=== PATIENT | female | born 1990 | race Caucasian/White ===

== ENCOUNTER 2016-03-30 07:55 | Emergency (ER) | payer MEDICAID ==
[~2016-03-30] VITALS: Ht 167.6 cm; Wt 76.0 kg
[~2016-03-30 07:55] MED LIST: PRENAT PO
[2016-03-30 07:56] VITALS: Ht 167.6 cm; Wt 76.0 kg
[2016-03-30] MEDS ORDERED: SODI126M NASAL (08:13)
[2016-03-30] MEDS ORDERED: IBUP-1542 PO (08:13)
--- NOTE | 2016-03-30 08:29 | ERD ---
ER Documentation Chief Complaint Date/Time DATE: 03/30/16 TIME: 08:24 Chief Complaint FEVER X 5 DAYS HPI 25-year-old female complaining of fever, sore throat, and headache 5 days. T- max was 105.1 yesterday. She also complaining of bilateral ear pain and nasal congestion. Unable to swallow because the pain. Denies cough or shortness breath. ROS All systems reviewed and are negative except as per history of present illness. Medications Home Meds Active Scripts Ibuprofen* (Motrin*) 600 Mg Tab, 600 MG PO Q6H Y for PAIN AND OR ELEVATED TEMP, #30 TAB Prov:RUSSELL RIOS. 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 OIL WELL 03/30/16 Reported Medications Multivit/Min/Fol Ac/Iron/Pren* ( S*) 1 Tab Tab, 1 TAB PO DAILY, TAB 10/01/13 Allergies Allergies: Coded Allergies: No Known Allergy (Unverified , 07/10/11) PMhx/Soc Medical and Surgical Hx: pt denies Medical Hx, pt denies Surgical Hx History of Surgery: No Anesthesia Reaction: No Hx Neurological Disorder: No Hx Respiratory Disorders: No Hx Cardiac Disorders: No Hx Psychiatric Problems: No Hx Miscellaneous Medical Probl: No Hx Alcohol Use: No Hx Substance Use: No Hx Tobacco Use: No Smoking Status: Never smoker Physical Exam Vitals Vital Signs Date Time Temp Pulse Resp B/P Pulse Ox O2 Delivery O2 Flow Rate FiO2 03/30/16 07:56 100.8 124 25 133/77 99 Physical Exam General impression: Well-developed, well-nourished, 25-year-old, alert, oriented, in no acute distress Head: Normocephalic, atraumatic. Eyes: PERRL, EOM normal. Conjunctiva not injected. ENT: External canals clear. TM's pearly gallardo. Oropharynx erythematous with purulent exudate. Neck: Supple, nontender. No lymphanopathy. No nuchal rigidity. Respiration: Normal respiratory effort. Lungs clear to auscultate bilaterally. No wheezes, rales or rhonchi. Cardiovascular: Regular rate and rhythm. No murmurs or extra heart sounds. Neuro: Mental status normal, speech normal. Skin: Normal turgor. No rash or lesions. Psych: Normal mood and affect. Results 24 hrs Current Medications Medications (Trade) Dose Ordered Sig/Tangela Route PRN Reason Start Time Stop Time Status Last Admin Dose Admin Penicillin G Benzathine (Bicillin La) 1,200,000 units ONCE ONCE IM 03/30/16 08:30 03/30/16 08:31 Procedures/MDM Well-appearing 25-year-old female presented to ED with fever and sore throat 5 days. Patient symptoms and exam findings are consistent with strep pharyngitis. Patient was treated in the ED with penicillin BG IM 1.2 million units. Patient appears well, stable for discharge and outpatient management. Medical decision making shared with patient and family. Education provided to patient and family. Patient and family expressed understanding of the plan. Medications on discharge: Saline nasal spray, ibuprofen. Follow-up: Primary care provider in 2-3 days or return to ED if worse. Departure Diagnosis: Primary Impression: Strep pharyngitis Condition: Stable Patient Instructions: Pharyngitis, Strep (Presumed) Referrals: [facility] YOU HAVE RECEIVED A MEDICAL SCREENING EXAM AND THE RESULTS INDICATE THAT YOU DO NOT HAVE A CONDITION THAT REQUIRES URGENT TREATMENT IN THE EMERGENCY DEPARTMENT. FURTHER EVALUATION AND TREATMENT OF YOUR CONDITION CAN WAIT UNTIL YOU ARE SEEN IN YOUR DOCTORS OFFICE WITHIN THE NEXT 1-2 DAYS. IT IS YOUR RESPONSIBILITY TO MAKE AN APPOINTMENT FOR FOLOW-UP CARE. IF YOU HAVE A PRIMARY DOCTOR --you should call your primary doctor and schedule an appointment IF YOU DO NOT HAVE A PRIMARY DOCTOR YOU CAN CALL OUR PHYSICIAN REFERRAL HOTLINE AT IF YOU CAN NOT AFFORD TO SEE A PHYSICIAN YOU CAN CHOSE FROM THE FOLLOWING [facility] [address] [facility] [address] [facility] [address] [facility] [address] [facility] [address] [facility]. [address] Additional Instructions: Call your primary care doctor TOMORROW for an appointment during the next 2-3 days.See the doctor sooner or return here if your condition worsens before your appointment time. RUSSELL RIOS NP Mar 30, 2016 08:29
[2016-03-30] MEDS ORDERED: PENICILLIN G BENZ 1.2 MIL UNIT SYG IM ONE (08:30)
== END 2016-03-30 09:24 | disposition home or self-care (01) ==
LOC: FTE 07:55
DX: J02.0 Streptococcal pharyngitis (principal)
CPT/HCPCS: 96372; J0561; Z7502

== ENCOUNTER 2016-12-17 08:18 | Outpatient (CLI) | payer OTHER ==
[~2016-12-17] VITALS: Ht 167.6 cm; Wt 84.0 kg
[~2016-12-17 08:18] MED LIST changes: +IBUP-1542 PO; +SODI126M NASAL
[2016-12-17 08:28] VITALS: Ht 167.6 cm; Wt 84.0 kg
[2016-12-17 08:29] VITALS: BP 117/73; PULSE 77; RESP 18
--- NOTE | 2016-12-17 09:46 | RADRPT ---
PROCEDURE: OB ultrasound for biophysical profile CLINICAL INDICATION: Contractions. TECHNIQUE: Multiple sonographic images of the pelvis were obtained. Transabdominal view of the gr avid uterus are available for review. The images were reviewed on a PACS workstation. COMPARISON: None FINDINGS: breathing movement = 2/2 tone = 2/2 motion = 2/2 Quantitative amniotic fluid volume = 2/2 RAVI = 16.1 cm Single live intrauterine with cardiac activity at 144 beats per minute. There is a anterior placenta without previa or abruption. The cervix is closed. The cervical length is 2.3 cm. IMPRESSION: 1. Single living intrauterine gestation in cephalic position. 2. Biophysical profile = 8/8. 3. RAVI = 16.1 cm. RPTAT: AACC Physician Cherri Date Time Electronically viewed and signed by Physician Cherri on 12/17/2016 09:46 /
[2016-12-17 10:24] LABS: ADD UMIC YES; UR ASCORBIC ACID NEGATIVE (NEGATIVE); UR BACTERIA FEW /HPF (NONE SEEN); UR BILIRUBIN (Dip) NEGATIVE (NEGATIVE); UR BLOOD (Dip) NEGATIVE (NEGATIVE); UR CLARITY CLEAR (CLEAR); UR COLOR YELLOW (YELLOW); UR GLUCOSE (Dip) NEGATIVE (NEGATIVE); UR KETONES (Dip) NEGATIVE (NEGATIVE); UR LEUKOCYTE ESTERASE (Dip) TRACE Leu/ul (NEGATIVE); UR NITRITE (Dip) NEGATIVE (NEGATIVE); UR RBC 2 /HPF (0-5); UR SQUAMOUS EPITHELIAL CELL FEW /HPF (FEW); UR TOTAL PROTEIN (Dip) NEGATIVE (NEGATIVE); UR UROBILINOGEN (Dip) 1+ mg/dL (NEGATIVE)
[2016-12-17] MEDS ORDERED: TERBUTALINE 1 ML ONE (10:25)
[2016-12-17] MEDS: LACTATED RINGER'S 1,000 ML IV SCH ×2 (10:52→12:25)
[2016-12-17] MEDS ORDERED: TERBUTALINE 1 MG/ML INJ SC PRN (11:00)
[2016-12-17 12:05] LABS: BASOPHILS % 0.1 % (0.0-2.0); EOSINOPHILS % 0.1 % (0.0-7.0); HEMATOCRIT 33.4 % (37.0-47.0); LYMPHOCYTES # 2.1 10^3/ul (0.8-2.9); LYMPHOCYTES % 28.5 % (15.0-51.0); MEAN CORPUSCULAR HEMOGLOBIN 29.6 pg (29.0-33.0); MEAN CORPUSCULAR HGB CONC 32.9 g/dl (32.0-37.0); MEAN PLATELET VOLUME 11.3 fl (7.4-10.4); MONOCYTE # 0.4 10^3/ul (0.3-0.9); MONOCYTES % 5.1 % (0.0-11.0); NEUTROPHIL # 4.8 10^3/ul (1.6-7.5); NEUTROPHILS % 65.5 % (39.0-77.0); PLATELET COUNT 221 10^3/UL (140-415); RED BLOOD COUNT 3.71 10^6/ul (4.20-5.40); RED CELL DISTRIBUTION WIDTH 13.6 % (11.5-14.5); WHITE BLOOD COUNT 7.3 10^3/ul (4.8-10.8)
--- NOTE | 2016-12-17 13:37 | PN ---
Triage Information Date/Time Reason for visit: Uterine contractions Weeks of Gestation 28w 6d /Para Objective Vital Signs Date Time Temp Pulse Resp B/P Pulse Ox O2 Delivery O2 Flow Rate FiO2 12/17/16 08:29 98.1 77 18 117/73 Room Air Heart Rate Comments reactive Exam Tocometer --> no UCs after IVFs, terbutaline Results/Medications Result Diagram: 12/17/16 1115 Results 24 hrs Laboratory Tests Test 12/17/16 09:45 12/17/16 11:15 Urine Color YELLOW Urine Clarity CLEAR Urine pH 7.0 Urine Specific Rhine 1.020 Urine Ketones NEGATIVE Urine Nitrite NEGATIVE Urine Bilirubin NEGATIVE Urine Urobilinogen 1+ H Urine Leukocyte Esterase TRACE A Urine Microscopic RBC 2 Urine Microscopic WBC 20 H Urine Squamous Epithelial Cells FEW Urine Bacteria FEW A Urine Hemoglobin NEGATIVE Urine Glucose NEGATIVE Urine Total Protein NEGATIVE White Blood Count 7.3 Red Blood Count 3.71 L Hemoglobin 11.0 L Hematocrit 33.4 L Mean Corpuscular Volume 90.0 Mean Corpuscular Hemoglobin 29.6 Mean Corpuscular Hemoglobin Concent 32.9 Red Cell Distribution Width 13.6 Platelet Count 221 Mean Platelet Volume 11.3 H Neutrophils % 65.5 Lymphocytes % 28.5 Monocytes % 5.1 Eosinophils % 0.1 Basophils % 0.1 Nucleated Red Blood Cells % 0.0 Neutrophils # 4.8 Lymphocytes # 2.1 Monocytes # 0.4 Eosinophils # 0.0 Basophils # 0.0 Nucleated Red Blood Cells # 0.0 Medications Current Medications Lactated Ringer's (Lr) 1,000 ml @ 125 mls/hr Q8H IV Last administered on 12:25; Admin Dose 125 MLS/HR; Start 12/17/16 at 10:08 Terbutaline Sulfate (Brethine) 0.25 mg Q30MIN PRN SC contractions Last administered on 12/17/16 10:52; Admin Dose 0.25 MG; Start 12/17/16 at 11:00 Imaging Results CL 2.3cm Disposition: Discharge Assessment/Plan 26 y/o at 28w 6d with contractions, no e/o ptl -discharge home -ptl precautions given -f/u with OB MIO RIDLEY Dec 17, 2016 13:37
--- NOTE | 2016-12-17 15:08 | TRIAGE ---
OB Triage Datetime Report Generated by CPN: 12/17/2016 15:07 Datetime: 12/17/2016 13:15 Stage of : OB Triage Datetime: 12/17/2016 13:13 Labor Evaluation Frequency: 0 Monitor Mode: External Duration (sec)2399: 0 Resting Tone [place]: Relaxed Heart Rate FHR Baseline Rate: 125 Monitor Mode: External US Variability: Moderate 6-25 bpm Accelerations: 15X15 Decelerations: None Category: Category I Datetime: 12/17/2016 12:05 Labor Evaluation Frequency: IRREG Monitor Mode: External Duration (sec)2399: 50-90 Quality: Mild Pattern: Normal: <= 5 Contractions in 10 Minutes Resting Tone [place]: Relaxed Heart Rate FHR Baseline Rate: 135 Monitor Mode: External US Variability: Moderate 6-25 bpm Accelerations: 15X15 Decelerations: None Category: Category I Pain Assessment Pain Scale: 0 Pain Presence: None/Denies Pain Type: N/A Pain Goal: 2 Pain Assessment Comments: PAIN REPORTS NO PAIN AND FEELING MIUCH BETTER Datetime: 12/17/2016 10:54 Labor Evaluation Frequency: 3-5 Monitor Mode: External Duration (sec)2399: 40-80 Quality: Moderate Pattern: Normal: <= 5 Contractions in 10 Minutes Resting Tone [place]: Relaxed Heart Rate FHR Baseline Rate: 145 Monitor Mode: External US Variability: Moderate 6-25 bpm Accelerations: 15X15 Decelerations: None Category: Category I Datetime: 12/17/2016 10:00 Stage of : OB Triage Assessment Type: Triage Maternal Assessment Level of Consciousness: Fully Conscious DTR's/Clonus: DTRs 2+; No Clonus Headache: Denies Blurred Vision: No Respiratory Effort: Unlabored; Regular Rhythm; Equal Expansion Breath Sounds, Left: Clear and Equal Breath Sounds, Right: Clear and Equal Nausea/Vomiting: Denies RUQ Epigastric Pain: Denies Lower Extremities Edema: None Degree: None Upper Extremities Edema: None Degree: None Facial Edema: None Temperature Route: Axillary Fall Risk Assessment History of Falling: (0) No Secondary Diagnosis: (0) No Ambulatory Aid: (0) Bedrest/Nurse Assist IV Therapy: (0) No Gait: (0) Normal/Bedrest/Immobile Mental Status: (0) Oriented to Own Ability Fall Score: 0 Fall Risk Score Definition: No Risk: No action required Pain Assessment Pain Scale: 4 Pain Presence: Intermittent Pain Type: Contraction Pain Location: Abdomen; Back Pain Goal: 2 Pain Relief Measures: Comfort Measures Datetime: 12/17/2016 09:58 Labor Evaluation Frequency: 2-5 Monitor Mode: External Duration (sec)2399: 40-70 Quality: Mild Pattern: Normal: <= 5 Contractions in 10 Minutes Resting Tone [place]: Relaxed Heart Rate FHR Baseline Rate: 145 Monitor Mode: External US Variability: Moderate 6-25 bpm Accelerations: 15X15 Decelerations: None Category: Category I Datetime: 12/17/2016 08:55 Labor Evaluation Frequency: IRREG Monitor Mode: External Duration (sec)2399: 50-80 Quality: Mild Pattern: Normal: <= 5 Contractions in 10 Minutes Resting Tone [place]: Relaxed Heart Rate FHR Baseline Rate: 135 Monitor Mode: External US Variability: Moderate 6-25 bpm Accelerations: 15X15 Decelerations: None Category: Category I Datetime: 12/17/2016 08:51 Time of Arrival: 12/17/2016 08:17 EGA: 28.6 Arrived By: Ambulatory Arrived From: Home Chief Complaint: uc's Movement: Present Contractions: Irregular Rupture of Membranes: Denies Vaginal Bleeding: None Vaginal Discharge: Denies Recent Sexual Intercouse: Denies Abdominal Trauma: Not Applicable Patient Complaints: Contractions Time Provider Notified: 12/17/2016 10:21 Provider Notified: DR. TATUM Initial Plan: nst, bpp, cl Datetime: 12/17/2016 08:38 EGA: 28.6 Datetime: 12/17/2016 08:20 Stage of : OB Triage Maternal Assessment Level of Consciousness: Fully Conscious DTR's/Clonus: DTRs 2+; No Clonus Headache: Denies Blurred Vision: No Respiratory Effort: Unlabored; Regular Rhythm; Equal Expansion Breath Sounds, Left: Clear and Equal Breath Sounds, Right: Clear and Equal Nausea/Vomiting: Denies RUQ Epigastric Pain: Denies Lower Extremities Edema: None Degree: None Upper Extremities Edema: None Degree: None Facial Edema: None Temperature Route: Oral Fall Risk Assessment History of Falling: (0) No Secondary Diagnosis: (0) No Ambulatory Aid: (0) Bedrest/Nurse Assist IV Therapy: (0) No Gait: (0) Normal/Bedrest/Immobile Mental Status: (0) Oriented to Own Ability Fall Score: 0 Fall Risk Score Definition: No Risk: No action required Labor Evaluation Frequency: every 5 min at home per pt Monitor Mode: External Heart Rate FHR Baseline Rate: 134 Monitor Mode: External US Pain Assessment Pain Scale: 3 Datetime: 12/17/2016 08:17 Time of Arrival: 12/17/2016 08:17 Arrived By: Ambulatory Arrived From: Home Chief Complaint: contractions started at 0129 Movement: Present Time Contractions Began: 12/17/2016 07:09 Rupture of Membranes: Denies Vaginal Discharge: Denies Recent Sexual Intercouse: Denies Abdominal Trauma: Not Applicable Patient Complaints: Contractions Initial Plan: efm
== END 2016-12-17 14:00 | disposition home or self-care (01) ==
LOC: OBT 08:18 → L-D 08:18 → OBT 14:00
PROVIDERS: ATTEND Obstetrics & Gynecology
DX: O62.9 Abnormality of forces of labor, unspecified (principal); Z3A.28 28 weeks gestation of pregnancy
CPT/HCPCS: 36415; 76817; 76818; 81001; 85025; 96360; 96361; J3105; J7120; Z7500; G0463

== ENCOUNTER 2017-02-05 00:06 | Outpatient (CLI) | payer OTHER ==
[~2017-02-05] VITALS: Ht 165.1 cm; Wt 88.3 kg
[~2017-02-05 00:06] MED LIST changes: -IBUP-1542 PO; -SODI126M NASAL
[2017-02-05] MEDS ORDERED: FERR134T PO (00:12)
[2017-02-05 00:23] VITALS: BP 125/73; PULSE 76; RESP 18
--- NOTE | 2017-02-05 02:23 | RADRPT ---
PROCEDURE: US OB biophysical profile. CLINICAL INDICATION: Labor TECHNIQUE: Multiple sonographic images of the pelvis were obtained. The images were reviewed on a PACS workstation. COMPARISON: US PELVIS 12/17/2016 FINDINGS: There is a single live intrauterine gestation. There is a normal amount of amniotic fluid with an RAVI = 20.3 cm. Cardiac activity is present with 118 beats per minute. There is a cephalic presentation. The placenta is anterior and grade II. Biophysical profile: movement 2/2 tone 2/2. breathing 2/2 RAVI 2/2 Total 10/26 IMPRESSION: Normal biophysical profile for a single live intrauterine gestation . RPTAT: HRSR Physician Nikki Date Time Electronically viewed and signed by Physician Nikki on 02/05/2017 02:23 RR/
--- NOTE | 2017-02-05 02:50 | PN ---
Triage Information Date/Time Reason for visit: Vag spotting / bleeding Weeks of Gestation 36 weeks /Para Objective Vital Signs Date Time Temp Pulse Resp B/P Pulse Ox O2 Delivery O2 Flow Rate FiO2 02/05/17 00:23 98.7 76 18 125/73 Room Air Heart Rate Comments reactive Contractions: >10 Minutes Apart Exam FT/60/-2 ROM plus negative Results/Medications Results 24 hrs Laboratory Tests Test 02/05/17 00:50 Membranes Rupture NEGATIVE Imaging Results BPP 8/8, RAVI 20.3cm Disposition: Discharge MIO RIDLEY Feb 05, 2017 02:50
--- NOTE | 2017-02-05 03:01 | TRIAGE ---
OB Triage Datetime Report Generated by CPN: 02/05/2017 03:00 Datetime: 02/05/2017 02:41 Stage of : OB Triage Datetime: 02/05/2017 02:36 Stage of : OB Triage Datetime: 02/05/2017 02:30 Stage of : OB Triage Datetime: 02/05/2017 02:18 Stage of : OB Triage Vaginal Exam Dilatation (cms): 0.5 Effacement (%): 60 Station: -2 Exam By: E Aman Vaginal Bleeding: Small Cervix, Consistency: Soft Cervix, Position: Posterior Presentation 'A': Cephalic Datetime: 02/05/2017 02:07 Stage of : OB Triage Labor Evaluation Frequency: 2-6 Monitor Mode: External Duration (sec)2399: 30-60 Quality: Mild Pattern: Normal: <= 5 Contractions in 10 Minutes Resting Tone [place]: Relaxed Monitor Mode: External US Variability: Moderate 6-25 bpm Accelerations: 15X15 Decelerations: None Category: Category I Datetime: 02/05/2017 01:47 Stage of : OB Triage Heart Rate FHR Baseline Rate: 120 Monitor Mode: External US Variability: Moderate 6-25 bpm Accelerations: 15X15 Category: Category I Datetime: 02/05/2017 01:34 Stage of : OB Triage Heart Rate FHR Baseline Rate: 130 Monitor Mode: External US Pain Assessment Pain Scale: 4 Pain Presence: Intermittent Pain Type: Cramping Pain Location: Abdomen Datetime: 02/05/2017 00:52 Stage of : OB Triage Monitor Mode: External US Pain Assessment Pain Scale: 2 Pain Presence: Intermittent Pain Type: Cramping Pain Location: Abdomen Vaginal Bleeding: Scant Pool: Negative Datetime: 02/05/2017 00:40 Stage of : OB Triage Monitor Mode: External Quality: Mild Pattern: Normal: <= 5 Contractions in 10 Minutes Resting Tone [place]: Relaxed Contraction Comments: Pt denies feeling ucs Heart Rate FHR Baseline Rate: 120 Monitor Mode: External US FHR Baseline Changes: No Baseline Change Variability: Moderate 6-25 bpm Accelerations: 15X15 Decelerations: None Category: Category I Pain Assessment Pain Scale: 0 Pain Presence: None/Denies Pain Type: N/A Datetime: 02/05/2017 00:24 Time of Arrival: 02/05/2017 00:02 EGA: 36.0 Arrived By: Wheelchair Arrived From: Home Chief Complaint: c/o gush of clood "like a period" at 2320. States has had high BP last sever al months Movement: Decreased Contractions: Denies/Absent Rupture of Membranes: Denies Vaginal Bleeding: Moderate Vaginal Discharge: Present Recent Sexual Intercouse: Denies Abdominal Trauma: Not Applicable Patient Complaints: Other Time Provider Notified: 02/05/2017 00:40 Provider Notified: Dr Lemus Initial Plan: EFM, BPP,ROM+ Datetime: 02/05/2017 00:18 Stage of : OB Triage Maternal Assessment Level of Consciousness: Fully Conscious Headache: Denies Blurred Vision: No Respiratory Effort: Unlabored Nausea/Vomiting: Denies RUQ Epigastric Pain: Denies Facial Edema: None Labor Evaluation Frequency: placed Monitor Mode: External Resting Tone [place]: Relaxed Monitor Mode: External US Comments: FHT 120 Pain Assessment Pain Scale: 0 Pain Presence: None/Denies Pain Type: N/A Datetime: 12/17/2016 10:00 Fall Risk Assessment Fall Score: 0 Fall Risk Score Definition: No Risk: No action required Datetime: 12/17/2016 08:51 EGA: 28.6 Datetime: 12/17/2016 08:38 EGA: 28.6 Datetime: 12/17/2016 08:20 Fall Risk Assessment Fall Score: 0 Fall Risk Score Definition: No Risk: No action required
== END 2017-02-05 03:05 | disposition home or self-care (01) ==
LOC: OBT 00:06 → L-D 00:09 → OBT 03:05
PROVIDERS: ATTEND Obstetrics & Gynecology
DX: O26.853 Spotting complicating pregnancy, third trimester (principal); Z3A.36 36 weeks gestation of pregnancy
CPT/HCPCS: 76818; 84112; Z7500; G0463

== ENCOUNTER 2017-02-16 09:52 | Inpatient (IN) | payer OTHER ==
[~2017-02-16] VITALS: Ht 167.6 cm; Wt 87.6 kg
[~2017-02-16 09:52] MED LIST changes: +FERR134T PO
[2017-02-16] MEDS ORDERED: FOLI-49 PO (10:10)
[2017-02-16 10:11] VITALS: BP 120/76; PULSE 93; RESP 18; Ht 167.6 cm; Wt 87.6 kg
--- NOTE | 2017-02-16 11:06 | RADRPT ---
PROCEDURE: US OB biophysical profile. CLINICAL INDICATION: evaluation TECHNIQUE: Multiple sonographic images of the pelvis were obtained. The images were reviewed on a PACS workstation. COMPARISON: No prior studies are available for comparison. FINDINGS: There is a single viable intrauterine gestation. Cardiac activity is present with 139 beats per min nadja. There is a vertex presentation. The placenta is anterior. There is no evidence of placental abruption. There is a normal amount of amniotic fluid with an RAVI = 15.9 cm. Biophysical profile: movement 2/2 tone 2/2. breathing 2/2 RAVI 2/2 Total 10/26 RPTAT: AA . IMPRESSION: Normal biophysical profile. Physician Eugene Date Time Electronically viewed and signed by Physician Eugene on 02/16/2017 11:06 /
[2017-02-16] MEDS ORDERED: LACTATED RINGER'S 1,000 ML IV SCH (11:24)
--- NOTE | 2017-02-16 11:25 | TRIAGE ---
OB Triage Datetime Report Generated by CPN: 02/16/2017 11:25 Datetime: 02/16/2017 11:00 Stage of : OB Triage Maternal Assessment Level of Consciousness: Fully Conscious Labor Evaluation Frequency: 4UC/HR Monitor Mode: External Duration (sec)2399: 70-100 Quality: Mild Resting Tone [place]: Relaxed Heart Rate FHR Baseline Rate: 135 Monitor Mode: External US Variability: Moderate 6-25 bpm Accelerations: 15X15 Decelerations: None Category: Category I Pain Assessment Pain Scale: 0 Pain Goal: 3 Membrane Status: Ruptured Membranes Ruptured Date/Time: 02/16/2017 05:15 Datetime: 02/16/2017 10:20 Vaginal Exam Dilatation (cms): 4.0 Effacement (%): 70 Station: -2 Exam By: HEATHER Vaginal Bleeding: Scant Pool: Positive Nitrazine: Positive Cervix, Consistency: Soft Cervix, Position: Midposition Datetime: 02/16/2017 10:09 Assessment Type: Triage Maternal Assessment Level of Consciousness: Fully Conscious DTR's/Clonus: DTRs 2+; No Clonus Headache: Denies Blurred Vision: No Respiratory Effort: Unlabored; Regular Rhythm; Equal Expansion Breath Sounds, Left: Clear and Equal Breath Sounds, Right: Clear and Equal Nausea/Vomiting: Denies RUQ Epigastric Pain: Denies Lower Extremities Edema: None Degree: None Upper Extremities Edema: None Degree: None Facial Edema: None Fall Risk Assessment History of Falling: (0) No Secondary Diagnosis: (0) No Ambulatory Aid: (0) Bedrest/Nurse Assist IV Therapy: (0) No Gait: (0) Normal/Bedrest/Immobile Mental Status: (0) Oriented to Own Ability Fall Score: 0 Fall Risk Score Definition: No Risk: No action required Datetime: 02/16/2017 10:08 Time of Arrival: 02/16/2017 09:52 EGA: 37.4 Arrived By: Ambulatory Arrived From: Home Chief Complaint: PT HERE C/O LEAKING Movement: Present Contractions: Denies/Absent Rupture of Membranes: Unsure Vaginal Bleeding: None Vaginal Discharge: Present Recent Sexual Intercouse: Denies Abdominal Trauma: Not Applicable Patient Complaints: None Time Provider Notified: 02/16/2017 11:11 Provider Notified: [facility] Initial Plan: EFM/SVE/NITRAZINE/ROM PLUS/ Datetime: 02/16/2017 10:06 Monitor Mode: External Monitor Mode: External US Datetime: 02/05/2017 03:02 Membrane Status: Intact Datetime: 02/05/2017 00:24 EGA: 36.0 Datetime: 12/17/2016 10:00 Fall Score: 0 Fall Risk Score Definition: No Risk: No action required Datetime: 12/17/2016 08:51 EGA: 28.6 Datetime: 12/17/2016 08:38 EGA: 28.6 Datetime: 12/17/2016 08:20 Fall Score: 0 Fall Risk Score Definition: No Risk: No action required
[2017-02-16] MEDS ORDERED: LACTATED RINGER'S 1,000 ML IV PRN (11:30)
[2017-02-16] MEDS ORDERED: OXYTOCIN 30 UNITS/LR 500 ML IV PRN ×2 (11:30→22:00)
[2017-02-16] MEDS ORDERED: AMPICILLIN 2 GM/NS (PMX) 100 ML IV ONE (11:30)
[2017-02-16] MEDS ORDERED: CARBOPROST 250 MCG INJ IM PRN ×2 (11:30→22:00)
[2017-02-16] MEDS ORDERED: METHYLERGONOVINE 0.2 MG INJ IM PRN (11:30)
[2017-02-16] MEDS ORDERED: OXYTOCIN 30 UNITS/LR 500 ML IV SCH ×3 (11:30)
[2017-02-16] MEDS ORDERED: IBUPROFEN 600 MG TAB PO PRN (11:30)
[2017-02-16] MEDS ORDERED: LIDOCAINE 1% (MPF) 30 ML INJ INJ PRN (11:30)
[2017-02-16] MEDS ORDERED: MISOPROSTOL 200 MCG TAB PR PRN ×2 (11:30→22:00)
[2017-02-16] MEDS ORDERED: BUTORPHANOL 2 MG INJ IV PRN (11:30)
[2017-02-16 13:28] LABS: BASOPHILS % 0.3 % (0.0-2.0); EOSINOPHILS % 0.1 % (0.0-7.0); HEMATOCRIT 34.5 % (37.0-47.0); HEMOGLOBIN 11.5 g/dl (12.0-16.0); LYMPHOCYTES # 1.9 10^3/ul (0.8-2.9); LYMPHOCYTES % 27.9 % (15.0-51.0); MEAN CORPUSCULAR HEMOGLOBIN 29.3 pg (29.0-33.0); MEAN CORPUSCULAR HGB CONC 33.3 g/dl (32.0-37.0); MEAN CORPUSCULAR VOLUME 87.8 fl (82.0-101.0); MEAN PLATELET VOLUME 12.2 fl (7.4-10.4); MONOCYTE # 0.3 10^3/ul (0.3-0.9); MONOCYTES % 4.9 % (0.0-11.0); NEUTROPHIL # 4.6 10^3/ul (1.6-7.5); NEUTROPHILS % 66.2 % (39.0-77.0); PLATELET COUNT 216 10^3/UL (140-415); RED BLOOD COUNT 3.93 10^6/ul (4.20-5.40); RED CELL DISTRIBUTION WIDTH 13.6 % (11.5-14.5); WHITE BLOOD COUNT 6.9 10^3/ul (4.8-10.8)
[2017-02-16 13:43] LABS: INR 0.85; PROTIME 11.6 Sec (12.2-14.2); PT RATIO 0.9
[2017-02-16 13:44] LABS: PARTIAL THROMBOPLASTIN TIME 24.9 Sec (25.0-35.0)
[2017-02-16] MEDS: AMPICILLIN 1 GM/NS (PMX) 50 ML IV SCH ×2 (15:37→19:31)
[2017-02-16] MEDS: LACTATED RINGER'S 1,000 ML IV* SCH (21:41)
[2017-02-16] MEDS ORDERED: HYDROCODONE/APAP (5/325) TAB PO PRN ×2 (22:00)
[2017-02-16] MEDS ORDERED: DIBUCAINE 1% 30 GM OINT PR PRN (22:00)
[2017-02-16] MEDS ORDERED: BENZOCAINE 20% 56 ML SPRAY TOP PRN (22:00)
[2017-02-16] MEDS ORDERED: WITCH HAZEL/GLYCERIN PAD PR PRN (22:00)
[2017-02-16] MEDS ORDERED: LANOLIN 7 GM TUBE TOP PRN (22:00)
--- NOTE | 2017-02-16 22:19 | LDN ---
Date/Time of Note Date/Time of Note DATE: 02/16/17 TIME: 22:12 Delivery Summary 02/16/2017 I was called due to precipious delivery of the patient and immediate non availability of attending. Attended to the patient 's bed side. Patient was admitted in the morning by Larry Alonso in am due to SROM at home for labor augmentation Placenta Delivered: Spontaneously Meconium: none Episiotomy: No Laceration repair: 2nd perineal laceration repaired with 2-0 Anesthesia type: None Estimated blood loss: 300 Sponge & Needle done & correct: Yes All needle counts correct: Yes Any foreign bodies felt in the: No Problems: Delivery Information Sex Infant Sex: male Apgars 1 Minute: 8 5 Minute: 9 Suctioning Nose & mouth suctioned at josie: Yes Delee suction performed: Yes Umbilical Cord Umbilical cord with: 3 Vessels Cord presentations: no nuchal cord Cord Blood was obtained: Yes JAYDEN OCONNOR MD Feb 16, 2017 22:19
[2017-02-16 22:30] VITALS: BP 124/76; PULSE 64; RESP 18
[2017-02-16] MEDS: IBUPROFEN 600 MG TAB PO SCH (23:50)
[2017-02-17] VITALS: BP 116/74; PULSE 70; RESP 18
[2017-02-17 04:00] VITALS: BP 102/62; PULSE 68; RESP 18
[2017-02-17] MEDS: LACTATED RINGER'S 1,000 ML IV* SCH (05:41)
[2017-02-17] MEDS: IBUPROFEN 600 MG TAB PO SCH ×3 (06:36→17:07)
[2017-02-17 07:30] VITALS: BP 112/69; PULSE 69; RESP 16
[2017-02-17] MEDS: FOLIC ACID 1 MG TAB PO SCH (08:43)
[2017-02-17] MEDS: SENNA/DOCUSATE NA (8.6MG/50MG) TAB PO SCH ×2 (08:43→20:41)
[2017-02-17] MEDS: PRENATAL VITAMIN PO SCH (08:43)
[2017-02-17] MEDS: FERROUS SULFATE (SR) 142 MG TAB PO SCH (08:47)
[2017-02-17 09:43] LABS: BASOPHILS % 0.1 % (0.0-2.0); EOSINOPHILS % 0.2 % (0.0-7.0); HEMATOCRIT 30.8 % (37.0-47.0); HEMOGLOBIN 10.1 g/dl (12.0-16.0); LYMPHOCYTES # 1.7 10^3/ul (0.8-2.9); LYMPHOCYTES % 21.2 % (15.0-51.0); MEAN CORPUSCULAR HEMOGLOBIN 29.3 pg (29.0-33.0); MEAN CORPUSCULAR HGB CONC 32.8 g/dl (32.0-37.0); MEAN CORPUSCULAR VOLUME 89.3 fl (82.0-101.0); MEAN PLATELET VOLUME 11.9 fl (7.4-10.4); MONOCYTE # 0.3 10^3/ul (0.3-0.9); NEUTROPHILS % 74.3 % (39.0-77.0); PLATELET COUNT 187 10^3/UL (140-415); RED BLOOD COUNT 3.45 10^6/ul (4.20-5.40); RED CELL DISTRIBUTION WIDTH 13.9 % (11.5-14.5)
[2017-02-17 16:00] VITALS: BP 112/72; PULSE 70; RESP 16
--- NOTE | 2017-02-17 18:54 | PN ---
Date/Time of Note Date/Time of Note DATE: 02/17/17 TIME: 18:52 OB Subjective Subjective Subjective Post day 1 Doing Well Afebrile Ambulatory Chest Clear Breasts are soft , Nipples are intact Abdomen is soft Fundus is firm Moderate amount of lochia perineum is healing well,No evidence of infection No calf tenderness No ankle edema Laboratory Tests Test 02/17/17 09:01 White Blood Count 8.010^3/ul Red Blood Count 3.4510^6/ul Hemoglobin 10.1g/dl Hematocrit 30.8% Mean Corpuscular Volume 89.3fl Mean Corpuscular Hemoglobin 29.3pg Mean Corpuscular Hemoglobin Concent 32.8g/dl Red Cell Distribution Width 13.9% Platelet Count 40159^3/UL Mean Platelet Volume 11.9fl Neutrophils % 74.3% Lymphocytes % 21.2% Monocytes % 4.0% Eosinophils % 0.2% Basophils % 0.1% Nucleated Red Blood Cells % 0.0/100WBC Neutrophils # 6.010^3/ul Lymphocytes # 1.710^3/ul Monocytes # 0.310^3/ul Eosinophils # 0.010^3/ul Basophils # 0.010^3/ul Nucleated Red Blood Cells # 0.010^3/ul Current Medications Medications (Trade) Dose Ordered Sig/Tangela Route PRN Reason Start Time Stop Time Status Last Admin Dose Admin Lactated Ringer's 1,000 ml @ 125 mls/hr Q8H IV 02/16/17 11:24 02/16/17 21:48 DC 02/16/17 12:09 Ampicillin 100 ml @ 100 mls/hr ONCE ONCE IV 02/16/17 11:30 02/16/17 12:29 DC 02/16/17 12:13 Ampicillin 50 ml @ 100 mls/hr Q4H IV 02/16/17 15:30 02/16/17 21:48 DC 02/16/17 19:31 Oxytocin/Lactated Ringer's 500 ml @ 0 mls/hr TITRATE IV 02/16/17 11:30 02/16/17 21:48 DC 02/16/17 12:12 Butorphanol Tartrate (Stadol) 2 mg Q2H PRN IV PAIN 02/16/17 11:30 02/16/17 21:48 DC 02/16/17 19:27 Lidocaine 30 ml 30 ml ONCE PRN INJ EPISIOTOMY/TEARING 02/16/17 11:30 02/16/17 21:48 DC Oxytocin/Lactated Ringer's 500 ml @ 125 mls/hr ONCE -MAY REPEAT X1 IV 02/16/17 11:30 02/16/17 21:48 DC Oxytocin/Lactated Ringer's 500 ml @ 125 mls/hr ONCE IV 02/16/17 11:30 02/16/17 21:48 DC 02/16/17 20:28 Ibuprofen 600 mg 600 mg ONCE PRN PO Mild Pain (Pain Score 1-3) 02/16/17 11:30 02/16/17 21:48 DC Lactated Ringer's 1,000 ml @ 2,000 mls/hr Q30M PRN IV PRE-EPIDURAL BOLUS 02/16/17 11:30 02/16/17 21:48 DC 02/16/17 18:52 Oxytocin/Lactated Ringer's 500 ml @ 0 mls/hr ONCE PRN IV For Hemorrhage Management 02/16/17 11:30 02/16/17 21:48 DC Methylergonovine Maleate (Methergine) 0.2 mg ONCE PRN IM VAGINAL BLEEDING 02/16/17 11:30 02/16/17 21:48 DC Carboprost Tromethamine (Hemabate) 250 mcg ONCE PRN IM VAGINAL BLEEDING 02/16/17 11:30 02/16/17 21:48 DC Misoprostol 1000 mcg 1,000 mcg ONCE PRN WA VAGINAL BLEEDING 02/16/17 11:30 02/16/17 21:48 DC Lactated Ringer's (Lr) 1,000 ml @ 125 mls/hr Q8H IV* 02/16/17 21:41 02/17/17 07:51 DC Ibuprofen (Motrin) 600 mg Q6 PO 02/17/17 00:00 02/17/17 17:07 Acetaminophen/ Hydrocodone Bitart ([place]erguson (5/325)) 1 tab Q4H PRN PO PAIN LEVEL 1-5 02/16/17 22:00 Acetaminophen/ Hydrocodone Bitart (Ferguson (5/325)) 2 tab Q4H PRN PO PAIN LEVEL 6-10 02/16/17 22:00 Senna/Docusate Sodium (Senokot-S) 1 tab BID PO 02/17/17 09:00 02/17/17 08:43 Witch Shira/ Glycerin (Tucks Pads) 1 pad BEDSIDE MEDICATION PRN WA HEMORRHOID/EPISIOTMY PAIN 02/16/17 22:00 02/16/17 23:50 Benzocaine (Dermoplast [place]) 1 spray BEDSIDE MEDICATION PRN TOP HEMORRHOID/EPISIOTMY PAIN 02/16/17 22:00 02/16/17 23:49 Dibucaine (Nupercainal) 1 applic BEDSIDE MEDICATION PRN WA HEMORRHOID/EPISIOTMY PAIN 02/16/17 22:00 Lanolin ([id number]) 1 applic BEDSIDE MEDICATION PRN TOP BEDSIDE FOR LENNY TO NIPPLES 02/16/17 22:00 02/16/17 23:50 Diphtheria/ Tetanus/Acell Pertussis 0.5 ml 0.5 ml ONCE ONCE IM* 02/18/17 09:00 02/18/17 09:01 Oxytocin/Lactated Ringer's 500 ml @ 0 mls/hr ONCE PRN IV For Hemorrhage Management 02/16/17 22:00 02/17/17 02:27 Carboprost Tromethamine (Hemabate) 250 mcg ONCE PRN IM VAGINAL BLEEDING 02/16/17 22:00 Misoprostol (Cytotec) 1,000 mcg ONCE PRN [place] VAGINAL BLEEDING 02/16/17 22:00 Folic Acid (Folic Acid) 1 mg DAILY PO 02/17/17 09:00 02/17/17 08:43 Prenat Multivit/ Leather Patcher/Iron/Folic Ac () 1 tab DAILY PO 02/17/17 09:00 02/17/17 08:43 Ferrous Sulfate (Slow Fe) 142 mg DAILY PO 02/17/17 09:00 02/17/17 08:47 New born is doing well, Breast feeding LUZ WEST MD Feb 17, 2017 18:54
[2017-02-17 19:20] VITALS: BP 114/68; PULSE 72; RESP 19
[2017-02-18] MEDS: IBUPROFEN 600 MG TAB PO SCH ×3 (00:05→12:00)
[2017-02-18 04:00] VITALS: BP 103/74; PULSE 60; RESP 20
[2017-02-18 08:00] VITALS: BP 111/68; PULSE 63; RESP 16
[2017-02-18] MEDS: PRENATAL VITAMIN PO SCH (08:59)
[2017-02-18] MEDS: SENNA/DOCUSATE NA (8.6MG/50MG) TAB PO SCH (08:59)
[2017-02-18] MEDS: FERROUS SULFATE (SR) 142 MG TAB PO SCH (08:59)
[2017-02-18] MEDS: FOLIC ACID 1 MG TAB PO SCH (08:59)
[2017-02-18] MEDS ORDERED: DIPHTH/TET/ACEL PERTUSS (ADULT) 0.5 ML VIAL IM* ONE (09:00)
--- NOTE | 2017-02-18 10:01 | PD.PPDC ---
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
--- NOTE | 2017-02-18 10:03 | DS ---
Date/Time of Note Date/Time of Note DATE: 02/18/17 TIME: 10:02 Discharge Summary Admission/Discharge Info Admit Date/Time Feb 16, 2017 at 11:15 Discharge Date/Time February 18, 2017 at 10:00 Discharge Diagnosis Post normal vaginal delivery day 2 Patient Condition: Good Procedures Normal vaginal delivery Hx of Present Illness Term admitted to the hospital for delivery Hospital Course Satisfactory uneventful Home Meds Reported Medications Folic Acid* (Folic Acid*) 1 Mg Tablet, 1 MG PO DAILY, TAB 02/16/17 Ferrous Sulfate (Iron) 134 Mg Tablet, 134 MG PO DAILY, TAB 02/05/17 Multivit/Min/Fol Ac/Iron/Pren* ( S*) 1 Tab Tab, 1 TAB PO DAILY, TAB 10/01/13 Follow-up Plan instruction given recommended to be seen at the clinic in 2 weeks Primary Care Provider Jane Kaplan Time spent on discharge: < 30 minutes KALE TATUM MD Feb 18, 2017 10:03
== END 2017-02-18 13:34 | disposition home or self-care (01) | DRG 775 ==
LOC: L-D 09:52 → OBT 09:52 → L-D 11:15 → OBT 11:32 → PP1 22:06
PROVIDERS: ADMIT Obstetrics & Gynecology; ATTEND Obstetrics & Gynecology
PROC: 10E0XZZ Delivery of Products of Conception, External Approach (ICD-10-PCS; principal; 2017-02-16)
PROC: 0KQM0ZZ Repair Perineum Muscle, Open Approach (ICD-10-PCS; 2017-02-16)
DX: O62.3 Precipitate labor (principal); O70.1 Second degree perineal laceration during delivery; Z3A.37 37 weeks gestation of pregnancy; Z37.0 Single live birth
CPT/HCPCS: 76818; 84112; 85025; 85610; 85730; 86592; 86900; 86901; 90715; 99464; G0463; J0290; J0595; J2590; J7120

== ENCOUNTER 2018-06-28 08:09 | Emergency (ER) | payer OTHER ==
[~2018-06-28] VITALS: Ht 167.6 cm; Wt 81.8 kg
[~2018-06-28 08:09] MED LIST changes: +FOLI-49 PO
[2018-06-28 08:11] VITALS: Ht 167.6 cm; Wt 81.8 kg
[2018-06-28] MEDS ORDERED: ACETAMINOPHEN 500 MG TAB PO STA (08:24)
[2018-06-28] MEDS ORDERED: IBUP-1542 PO (11:08)
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
[2018-06-28 11:16] VITALS: BP 123/75; PULSE 82; RESP 20
== END 2018-06-28 11:17 | disposition home or self-care (01) ==
LOC: FTE 08:09
DX: M54.5 Low back pain (principal)
CPT/HCPCS: 72100; Z7502; Z7610

== ENCOUNTER 2018-10-04 17:50 | Emergency (ER) | payer OTHER ==
[~2018-10-04] VITALS: Wt 82.7 kg
[~2018-10-04 17:50] MED LIST changes: +FAMO-96 PO; +IBUP-1542 PO; +SIME80TA60 PO
[2018-10-04 17:52] VITALS: BP 130/82; PULSE 82; RESP 20
--- NOTE | 2018-10-04 18:22 | ERD ---
ER Documentation Chief Complaint Chief Complaint burning sensation and feels "something stuck in esophagus" HPI This is a 28-year-old female presents to the ED complaining of intermittent e pigastric pain x1 week. Patient states symptoms started after eating tacos. She states symptoms are worse after eating food, she describes a "burning sensation "that radiates from her stomach up to her esophagus. Patient that she has not been taking any medications for this. Reports associated abdominal bloating. She is passing gas. Denies any nausea, vomiting, diarrhea. No fevers or chills. No other symptoms. ROS All systems reviewed and are negative except as per history of present illness. Medications Home Meds Active Scripts Simethicone* (Mylicon*) 80 Mg Tab, 80 MG PO QID, #30 TAB Prov:KAPILIGRIKIANPETER PA-C 10/04/18 Famotidine* (Pepcid*) 20 Mg Tablet, 20 MG PO BID, #30 TAB Prov:KAPILIGRIKIANPETER N PA-C 10/04/18 Ibuprofen* (Ibuprofen*) 600 Mg Tablet, 600 MG PO Q8 for pain, #30 TAB Prov:SINGH ALANIZ 06/28/18 Reported Medications Folic Acid* (Folic Acid*) 1 Mg Tablet, 1 MG PO DAILY, TAB 02/16/17 Ferrous Sulfate (Iron) 134 Mg Tablet, 134 MG PO DAILY, TAB 02/05/17 Multivit/Min/Fol Ac/Iron/Pren* ( S*) 1 Tab Tab, 1 TAB PO DAILY, TAB 10/01/13 Allergies Allergies: Coded Allergies: No Known Allergy (Unverified , 02/05/17) PMhx/Soc Medical and Surgical Hx: pt denies Medical Hx History of Surgery: No Anesthesia Reaction: No Hx Neurological Disorder: No Hx Respiratory Disorders: No Hx Cardiac Disorders: No Hx Psychiatric Problems: No Hx Miscellaneous Medical Probl: No Hx Alcohol Use: No Hx Substance Use: No Hx Tobacco Use: No Physical Exam Vitals Vital Signs Date Temp Pulse Resp B/P (MAP) Pulse Ox O2 O2 Flow FiO2 Time Delivery Rate 10/04/18 99.2 82 20 130/82 98 17:52 (98) Physical Exam Const: No acute distress Head: Atraumatic Eyes: Normal Conjunctiva ENT: Normal External Ears, Nose and Mouth. Neck: Full range of motion. No meningismus. Resp: Clear to auscultation bilaterally Cardio: Regular rate and rhythm, no murmurs Abd: Soft, + mild epigastric tenderness palpation. Negative McBurney's, negative William's, no rebound, no guarding. + Mildly distended abdomen. Normal bowel sounds Skin: No petechiae or rashes Back: No midline or flank tenderness Ext: No cyanosis, or edema Neur: Awake and alert Psych: Normal Mood and Affect Procedures/MDM MEDICAL DECISION MAKIN-year-old otherwise healthy female presents with burning epigastric pain after food intake. Differential diagnosis includes gastritis versus GERD. I have low suspicion for pancreatitis, appendicitis, pyelonephritis or any other acute abdominal pathology. Patient's abdominal exam soft and benign. She will be discharged home with antacids, also recommended dietary modifications. She is told to follow-up with a primary care provider for referral to GI specialist for possible endoscopy for definitive diagnosis. Strict return precautions were discussed. PRESCRIPTIONS: Pepcid, simethicone SPECIALIST FOLLOW UP RECOMMENDED: GI specialist Patient has been advised to follow up with primary care in 1-2 days. Departure Diagnosis: Primary Impression: Gastritis Gastritis type: unspecified gastritis Chronicity: acute Gastritis bleeding: without bleeding Qualified Codes: K29.00 - Acute gastritis without bleeding Condition: Stable Patient Instructions: Gastritis (Adult) Additional Instructions: I recommend decreasing your salty, greasy, acidic food intake at this could be worsening her symptoms. You can take the medications I am prescribing you as needed. If you do not have any relief after 1 to 2 weeks of being on the medications, he should see her primary care provider for referral to GI specialist for possible endoscopy. Return here for any new or worsening symptoms. PETER BEY PA-C Oct 04, 2018 18:22
== END 2018-10-04 18:10 | disposition home or self-care (01) ==
LOC: E/R 17:50
DX: K29.00 Acute gastritis without bleeding (principal)
CPT/HCPCS: 99282

== ENCOUNTER 2018-12-16 11:00 | Emergency (ER) | payer OTHER ==
[~2018-12-16] VITALS: Ht 167.6 cm; Wt 83.0 kg
[~2018-12-16 11:00] MED LIST changes: +ALBU18HF INHALATION; +AZIT250T PO; +CYCL10TA7 PO; +PRED20TA PO
[2018-12-16 11:40] VITALS: BP 124/62; PULSE 85; RESP 20; Ht 167.6 cm; Wt 83.0 kg
[2018-12-16] MEDS ORDERED: ALBUTEROL 0.083% (NEB) 2.5 MG/3 ML AMP HHN STA (12:27)
[2018-12-16] MEDS ORDERED: predniSONE 20 MG TAB PO ONE (12:30)
== END 2018-12-16 13:23 | disposition home or self-care (01) ==
LOC: FTE 11:00
DX: R05 Cough (principal)
CPT/HCPCS: 94664; J7512; Z7502; Z7610